=== PATIENT | female | born 1965 | race Caucasian/White ===

== ENCOUNTER 2020-06-16 09:30 | Outpatient (CLI) | payer OTHER, SELFPAY ==
--- NOTE | ~2020-06-16 | MM_ITS ---
EXAMINATION: MM screening [facility] [place] HISTORY: Screening mammogram TECHNIQUE: Craniocaudal and mediolateral oblique 3-D tomosynthesis images were obtained and synthetic 2-D images were generated. CAD analysis was submitted and interpreted. COMPARISON: 11/04/2014, 05/17/2011 bilateral digital screening mammogram examinations BREAST PARENCHYMAL COMPOSITION: There are scattered areas of fibroglandular density. FINDINGS: Stable mild fibroglandular asymmetry. There is no evidence of suspicious mass, calcificatio n, or architectural distortion to suggest malignancy in either breast. There has been no suspicious i nterval change. IMPRESSION: 1. No mammographic evidence of malignancy. 2. Recommend routine screening mammography in one year. BI-RADS Category 2: Benign finding(s). Reviewed, dictated and finalized at location A.
--- NOTE | ~2020-06-16 | DEXA_ITS ---
Bone Density Report Name: Christy Swanson Age: 54 Sex: Female Ethnicity: White Date of : 1965 Indication: postmenopausal; height loss; prior fracture; hysterectomy; Referring Provider: Casey, Michelle Study: Bone densitometry was performed. Exam Date: June 16, 2020 Accession number: [id number] Bone Density: Region BMD T-score Z-score Classification AP Spine (L1-L4) 0.988 -0.5 0.6 Normal Femoral Neck (Left) 0.729 -1.1 0.0 Osteopenia Total Hip (Left) 0.912 -0.2 0.5 Normal Total Hip Bilateral Avg 0.896 -0.4 0.4 Normal Femoral Neck (Right) 0.692 -1.4 -0.3 Osteopenia Total Hip (Right) 0.878 -0.5 0.2 Normal World Health Organization criteria for BMD impression classify patients as: Normal (T-score at or above -1.0), Osteopenia (T-score between -1.0 and -2.5), or Osteoporosis (T-score at or below -2.5). 10-year Fracture Risk(1): Major Osteoporotic Fracture 11% Hip Fracture 0.8% Reported Risk Factors: [place] (), Neck BMD=0.692, BMI=38.3, previous fracture (1) FRAX(R) Version 3.08. Fracture probability calculated for an untreated patient. Fracture probability may be lower if the patient has received treatment. Previous Exams: Region Exam Age BMD T-score BMD Change BMD Change Date g/cm2 vs Baseline vs Previous AP Spine(L1-L4) 06/16/2020 54 0.988 -0.5 -0.015(-1.5%) -0.015(-1.5%) 11/04/2014 48 1.003 -0.4 Total Hip(Left) 06/16/2020 54 0.912 -0.2 0.040(4.5%)* 0.040(4.5%)* 11/04/2014 48 0.872 -0.6 Total Hip(Right) 06/16/2020 54 0.878 -0.5 0.050(6.0%)* 0.050(6.0%)* 11/04/2014 48 0.828 -0.9 *Denotes significance at 95% confidence level, LSC for AP Spine = 0.022 g/cm2, LSC for Total Hip = 0.027 g/cm2 Clinical Information Provided by Patient: Has had a low trauma fracture Has used the following medications: Vitamin D Has the following medical conditions: Hysterectomy Patient maximum height was 66 Menopause Age: 35 No regular weight bearing exercise Drinks caffeinated beverages Onset of menses at age 12 Number of children 1 Impression: The patient has low bone mass, based on the Right Femoral Neck T-score. The patient has an estimated ten-year risk of hip fracture of 0.8% and an estimated ten-year risk of major fracture of 11%, based on the WHO FRAX algorithm. The patient has risk factors, including: previous fracture. No significant bone loss was observed. Discussion: BONE DENSITY IS LOW
== END 2020-06-16 09:31 | disposition home or self-care (01) ==
PROVIDERS: Visit Provider Nurse Practitioner
DX: Z12.31 Encounter for screening mammogram for malignant neoplasm of breast (principal); Z78.0 Asymptomatic menopausal state; M85.852 Other specified disorders of bone density and structure, left thigh; M85.851 Other specified disorders of bone density and structure, right thigh
CPT/HCPCS: 77063; 77067; 77080

== ENCOUNTER 2021-01-24 16:14 | Emergency (ER) | payer OTHER, SELFPAY ==
--- NOTE | ~2021-01-24 | XR_ITS ---
XR foot RT min 3V 01/24/2021 16:28 Indication: Stubbed third and fourth toes of the right foot with pain Procedure: 4 views right foot Comparison: 01/24/2010 Findings: There are chronic changes at the fifth MTP joint with loose bodies. Mild osteoarthritis of the first MTP joint. Lisfranc joint intact. Normal mineralization. Small degenerative calcaneal enthe sophytes. There is a new sclerotic lesion of the talus. There are adjacent loose bodies. No acute fra cture or traumatic malalignment. Impression: 1: No acute fracture. 2: New sclerotic lesion of the talus. Correlate for history of malignancy. Metastatic disease cannot be excluded. Reviewed, dictated and finalized at location A. R ASSEMBLER Impression: 1: No acute fracture. 2: New sclerotic lesion of the talus. Correlate for history of malignancy. [place] static disease cannot be excluded.
[2021-01-24 16:21] VITALS: BP 138/76; PULSE 66; RESP 16; TEMP 36.6; O2SAT 100
--- NOTE | 2021-01-24 16:29 | ED.LOWEXIN ---
HPI - Extremity Injury (Lower) General Chief Complaint: Extremity Injury, Lower Stated Complaint: INJURED TOES Time Seen by Provider: 01/24/21 16:32 Source: patient and RN notes reviewed Mode of arrival: ambulatory Limitations: no limitations History of Present Illness HPI Narrative: 55-year-old female presents concern for pain to digits 3 and 4 of her right foot, with bruising. Reports 3 days ago she stubbed her toe on a suitcase. She denies any intervention for her pain. She denies any other symptoms, any dorsal foot pain, ankle pain. MD complaint: foot injury Related Data Home Medications Medication Instructions Recorded Confirmed fluoxetine 10 mg capsule 10 mg PO DAILY 03/23/20 omeprazole 10 mg capsule,delayed 10 mg PO DAILY 03/23/20 release alprazolam 01/24/21 buspirone mg 01/24/21 meloxicam 01/24/21 omeprazole 01/24/21 Allergies Allergy/AdvReac Type Severity Reaction Status Date / Time cortisone Allergy Mild unknown Verified 03/23/20 11:21 Review of Systems Review of Systems: Narrative: CONSTITUTIONAL: Denies malaise, chills, sweats, or fever. CARDIOVASCULAR: Denies chest pain, palpitations, or edema. RESPIRATORY: Denies cough or dyspnea. SKIN: Denies open skin MUSCULOSKELETAL: Reports pain, bruising and digits 3 and 4 of the right foot NEUROLOGIC: Denies numbness, weakness All systems reviewed & are unremarkable except as noted in HPI and below PMFSH Past Medical History Medical History (Updated 01/24/21 @ 16:53 by Shantelle Ward NP) Bilateral knee pain Fall Surgical History Surgical History (Updated 03/23/20 @ 15:35 by DOUGLAS Zimmerman) Total knee replacement status Social History Social History Smoking status: Never smoker Alcohol intake: current Comments At time of signature, agree with nursing past medical, surgical, social and family history. There is no relevant family history pertinent to the presenting complaint Exam Narrative: Exam Narrative: GENERAL: Well-appearing, well-nourished, and in no acute distress. HEAD: Normocephalic, atraumatic. EYES: PERRLA, conjunctivae clear NECK: Supple. CHEST: Speaks in full sentences. No respiratory distress. HEART: Regular rate and rhythm. Normal and equal peripheral pulses. EXTREMITIES: Digits 3 and 4 of the right foot have normal strength and sensation, normal range of motion. No edema, mild ecchymosis. 5/5 strength with digit flexion and extension. Normal sensation with sensitivity to light touch and pain. No point tenderness. No open wounds, no skin tenting, no devitalized tissue or atrophy, no trophic changes, no obvious deformity, alignment normal, nearby joints and structures intact. Distal pulses palpable and equal bilaterally, skin warm, dry, pink. Capillary refill less than 3 seconds. No dorsal foot tenderness SKIN: Warm, dry, no rash. NEURO: Alert and oriented x3. PSYCH: Normal mood and affect Course Course Emergency Course: Discussed incidental x-ray findings with patient, discussed need for follow-up with orthopedics or primary care doctor. Patient reports she has an appointment with Dr. Hawk later this week, she also declined with her primary. Patient denies any current or past history of cancer Patient is aware of diagnosis, understands and agrees to treatment plan. Anticipatory guidance given. Patient agrees to follow-up as directed and is aware of reasons to seek care at the emergency department. Portions of this record may have been created with voice recognition software Vital Signs Vital signs: Vital Signs Temperature 97.8 F 01/24/21 16:21 Pulse Rate 66 01/24/21 16:21 Respiratory Rate 16 01/24/21 16:21 Blood Pressure 138/76 01/24/21 16:21 Pulse Oximetry 100 01/24/21 16:21 Temperature 97.8 F 01/24/21 16:21 Pulse Rate 66 01/24/21 16:21 Respiratory Rate 16 01/24/21 16:21 Blood Pressure 138/76 01/24/21 16:21 Pul
== END 2021-01-24 17:00 | disposition home or self-care (01) ==
PROVIDERS: Emergency Provider Nurse Practitioner
DX: S99.921A Unspecified injury of right foot, initial encounter (principal); W22.8XXA Striking against or struck by other objects, initial encounter; M89.9 Disorder of bone, unspecified; Z96.659 Presence of unspecified artificial knee joint
CPT/HCPCS: 73630; 99213; G0463

== ENCOUNTER 2021-03-20 00:37 | Emergency (ER) | payer OTHER, SELFPAY ==
[2021-03-20] VITALS (7 sets, daily range): BP systolic 96–150; BP diastolic 72–99; PULSE 62–72; RESP 15–18; O2SAT 98–100
--- NOTE | ~2021-03-20 | CT_ITS ---
EXAMINATION: CT abdomen pelvis w con INDICATION: Lower abdominal pain TECHNIQUE: Computed tomographic images of the abdomen and pelvis were obtained after the administrati on of 100 cc of Omnipaque 350 intravenous contrast. The dose-length product (DLP) was 1498.26 mGy-cm. Automated exposure control and iterative reconstruction technique were employed. COMPARISON: 01/04/2019 FINDINGS: The lung bases are clear. The heart size is normal. There is a small sliding hiatal hernia. The gallbladder is surgically absent. Punctate calcifications in an otherwise normal spleen likely r epresent healed granulomatous disease. The liver, pancreas, and adrenal glands are normal. The kidney s are unremarkable. No pathologically enlarged abdominal or pelvic lymph nodes are identified. A circ umaortic left renal vein is noted. No pathologically enlarged abdominal or pelvic lymph nodes are neyda ntified. There is wall thickening involving several loops of small bowel in the left pelvis. A small amount of fluid is present in the associated small bowel mesentery. There is no free intraperitoneal gas or evidence of bowel obstruction. Surgical changes are noted in the rectum and and a distal small bowel loop. There is moderate lumbar spondylosis. There is a fat-containing umbilical hernia. Also s een is a midline epigastric hernia containing fat. IMPRESSION: 1. Wall thickening involving nondilated small bowel in the left lower quadrant, likely enteritis. Reviewed, dictated and finalized at location A.
[2021-03-20 02:05] LABS: Basophils Percent Auto 0.4 % (0.2-1.2); Eosinophils Absolute Auto 0.1 K/mm3 (0-0.3); Eosinophils Percent Auto 0.9 % (0-4.4); Hemoglobin 14.2 g/dL (12.0-15.0); Immature Granulocyte Absolute 0.01 K/mm3 (0.00-0.031); Immature Granulocyte Percent A 0.1 % (0-0.5); Lymphocytes Absolute Auto 1.22 K/mm3 (0.9-3.2); Lymphocytes Percent Auto 17.5 % (18.3-44.2); Mean Corpuscular HGB Conc 32.3 g/dl (32-36); Mean Corpuscular Hemoglobin 29.6 pg (26-34); Mean Corpuscular Volume 91.7 fl (80-100); Monocytes Absolute Auto 0.3 K/mm3 (0.1-0.6); Monocytes Percent Auto 4.7 % (2.6-8.5); Neutrophils Absolute Auto 5.3 K/mm3 (1.3-6.7); Neutrophils Percent Auto 76.4 % (45.5-73.1); Platelet Count Result 216 k/mm3 (150-375)
[2021-03-20] MEDS: SODIUM CHLORIDE 0.9% IV 1,000 ML 999 ML IV CONT (02:18)
[2021-03-20 02:45] LABS: Add Urine Microscopic? YES; Appearance Urine Cloudy (Clear); Bacteria Urine Trace /hpf; Bilirubin Urine Negative (Negative); Blood Urine Negative (Negative); Color Urine Yellow (Yellow); Glucose Urine UA Negative (Negative); Ketones Urine Negative (Negative); Leukocyte Esterase Ur Trace LEU/UL (Negative); Nitrate Urine Negative (Negative); Protein Urine Negative (Negative); RBC Urine 0-2 /hpf (0-2); Urobilinogen Urine Negative mg/dL (<2.0)
[2021-03-20 03:12] LABS: Estimated CRCL calculation 71 ml/min; Estimated Glomerular Filt Rate > 60
[2021-03-20 03:19] LABS: Alanine Aminotransferase 19 U/L (4-35); Albumin Level 3.9 g/dL (3.5-5.1); Alkaline Phosphatase 78 U/L (38-126); Anion Gap 2 mmol/L (8-16); Aspartate Amino Transferase 28 U/L (14-36); Bilirubin,Total 0.5 mg/dL (0.2-1.3); Blood Urea Nitrogen 16 mg/dL (7-17); Calcium 9.6 mg/dL (8.4-10.2); Carbon Dioxide 33 mmol/L (22-30); Chloride 106 mmol/L (98-107); Estimated CRCL calculation 79 ml/min; Estimated Glomerular Filt Rate > 60; Glucose 92 mg/dL (65-105); Lipase 87 U/L (23-300); Potassium 4.1 mmol/L (3.4-5.0); Sodium 141 mmol/L (137-145)
--- NOTE | 2021-03-20 03:29 | ED.ABDPAIN ---
HPI - Abdominal Pain General Chief Complaint: Abdominal Pain Stated Complaint: abd pain Time Seen by Provider: 03/20/21 01:31 Source: patient and RN notes reviewed Mode of arrival: ambulatory Limitations: no limitations History of Present Illness HPI narrative: Patient is 55 years old white female presented to the ED with sudden onset of mid abdominal pain, across the abdomen started 5 hours prior to arrival. Associated with nausea. Patient denies any fever, chills, vomiting, diarrhea, constipation, urinary symptoms, radiation of pain, chest pain or shortness of breath. History of cholecystectomy, hysterectomy, endometriosis and colon resection. Also history of diverticulitis. Patient does not smoke or drink or uses drugs. Patient drove herself to the emergency room Related Data Home Medications Medication Instructions Recorded Confirmed fluoxetine 10 mg capsule 10 mg PO DAILY 03/23/20 omeprazole 10 mg capsule,delayed 10 mg PO DAILY 03/23/20 release alprazolam 01/24/21 buspirone mg 01/24/21 meloxicam 01/24/21 omeprazole 01/24/21 Allergies Allergy/AdvReac Type Severity Reaction Status Date / Time cortisone Allergy Mild unknown Verified 03/23/20 11:21 Review of Systems Review of Systems: Narrative: CONSTITUTIONAL: Denies fever, chills, or sweats. EYES: Denies visual changes, redness, or discharge. ENT: Denies rhinorrhea, congestion, sore throat, or otalgia. CARDIOVASCULAR: Denies chest pain, palpitations, or edema. RESPIRATORY: Denies cough or dyspnea. GASTROINTESTINAL: Denies abdominal pain, nausea, vomiting, or diarrhea. GENITOURINARY: Denies dysuria or hematuria. SKIN: Denies rash or itching. MUSCULOSKELETAL: Denies back pain, joint pain, or myalgia. NEUROLOGIC: Denies headache, numbness, or weakness. PSYCHIATRIC: Denies anxiety or depression. PMFSH Past Medical History Medical History Bilateral knee pain Fall Surgical History Surgical History Total knee replacement status Social History Social History Smoking status: Never smoker Alcohol intake: current Exam Narrative: Exam Narrative: General appearance: Well-developed, well-nourished Skin: Normal color Head: Normocephalic, nontraumatic Eyes: Clear conjunctiva ENT: Oropharynx normal, ears normal, nose normal Neck: Supple, nontender Chest and respiratory: Airway patent, no respiratory distress, no accessory muscle use Heart: Regular rate/rhythm Abdomen: Soft, mild diffuse tenderness right lower quadrant and epigastric area, no organomegaly, quiet bowel sounds Vascular: Normal peripheral pulses, normal capillary refill. Musculoskeletal: Normal range of motion, nontender back Neurologic: Alert and oriented ?3, AGILITY INSTRUCTOR is normal as tested, no gross motor deficit Course Vital Signs Vital signs: Vital Signs Pulse Rate 71 03/20/21 00:38 Respiratory Rate 16 03/20/21 00:38 Blood Pressure 150/82 H 03/20/21 00:38 Pulse Oximetry 99 03/20/21 00:38 Pulse Rate 62 03/20/21 05:05 Respiratory Rate 16 03/20/21 05:05 Blood Pressure 142/90 H 03/20/21 05:05 Pulse Oximetry 98 03/20/21 05:05 MDM - Abdominal Pain MDM Narrative Medical decision making narrative: My differential diagnosis as below. Labs, CT abdomen pelvis with IV contrast, UA, IV fluid, IV Dilaudid and Zofran ordered. Further plan to follow Differential Diagnosis Differential diagnosis: Likely abdominal pain, acute appendicitis, constipation, diverticulitis, endometriosis and pancreatitis Lab Data Result diagrams:
[2021-03-20] MEDS: HYDROmorphone HCL INJ (*CRX) 1 MG/ML SYR 0.5 MG IV PUSH (03:39)
[2021-03-20] MEDS: ONDANSETRON INJ 4 MG/2 ML VIAL IV PUSH (03:39)
== END 2021-03-20 05:32 | disposition home or self-care (01) ==
PROVIDERS: Emergency Provider Emergency Medicine; PCP Physician Assistant
DX: N13.30 Unspecified hydronephrosis (principal); K52.9 Noninfective gastroenteritis and colitis, unspecified
CPT/HCPCS: 36415; 74177; 80053; 81001; 83690; 85025; 96361; 96374; 96375; 99284; J1170; J2405; J7030; Q9967

== ENCOUNTER 2021-12-24 14:00 | Emergency (ER) | payer OTHER, SELFPAY ==
[2021-12-24 14:05] VITALS: BP 137/90; PULSE 76; RESP 16; TEMP 36.8; O2SAT 99
--- NOTE | 2021-12-24 14:13 | ED.URI ---
HPI - URI/Sore Throat General Chief Complaint: Upper Respiratory Infection Stated Complaint: Cough Time Seen by Provider: 12/24/21 14:08 Source: patient and RN notes reviewed History of Present Illness HPI Narrative: Patient is a 56-year-old female who presents the urgent care with complaints of cough, shortness of breath and fatigue. Patient states that it started last Friday with a sore throat and she has been taking Tylenol and cough medicine for her symptoms. Patient states that she has had some loose stools throughout the last 5 days. States that she took a rapid at home COVID test which was negative after only having 24 hours of symptoms. Patient denies of any recent fever, nausea, vomiting, chest pain. Denies of any known exposures to COVID. Patient has had the COVID vaccine. No other complaints. No acute distress noted. Patient aware of the plan of care. Some parts of this dictation were generated by voice recognition software and may contain typographical and/or grammatical inaccuracies. Related Data Home Medications Medication Instructions Recorded Confirmed fluoxetine 10 mg capsule 10 mg PO DAILY 03/23/20 omeprazole 10 mg capsule,delayed 10 mg PO DAILY 03/23/20 release alprazolam 01/24/21 buspirone mg 01/24/21 meloxicam 01/24/21 omeprazole 01/24/21 Allergies Allergy/AdvReac Type Severity Reaction Status Date / Time cortisone Allergy Mild unknown Verified 12/24/21 14:03 Review of Systems Review of Systems: CONSTITUTIONAL: Denies fever, chills, or sweats. Reports of fatigue EYES: Denies visual changes, redness, or discharge. ENT: Reports of intermittent sore throat, congestion, rhinorrhea CARDIOVASCULAR: Denies chest pain, palpitations, or edema. RESPIRATORY: Reports of cough with dyspnea GASTROINTESTINAL: Denies abdominal pain, nausea, vomiting, or diarrhea. GENITOURINARY: Denies dysuria or hematuria. SKIN: Denies rash or itching. MUSCULOSKELETAL: Denies back pain, joint pain, or myalgia. NEUROLOGIC: Denies headache, numbness, or weakness. All other systems reviewed are negative, except as documented in HPI. [facility] Past Medical History Medical History Bilateral knee pain Fall Surgical History Surgical History Total knee replacement status Social History Social History Smoking status: Never smoker Alcohol intake: current Comments At the time of my signature, I reviewed and agree with the nursing past medical, surgical, social, and family history. There is no relevant family history pertinent to the patient complaint. Exam Narrative: GENERAL: This is a well-nourished, well-developed patient, in no apparent distress. HEAD: normocephalic, atraumatic. EYES: PERRL. Sclera clear/white. Vision is grossly intact. EARS: External ears normal, auditory canals clear and without drainage, TMs normal without perforation. Hearing grossly intact. NOSE: External nose normal with no obvious nasal discharge, nares without redness, yellow rhinorrhea. THROAT: Mucous membranes moist, posterior pharynx clear. Moderate postnasal drainage NECK: Neck supple CARDIOVASCULAR: Regular rate and rhythm without murmurs, gallops, or rubs. RESPIRATORY: Clear to auscultation. Breath sounds equal bilaterally. No wheezes, rales, or rhonchi. SKIN: warm, intact with no suspicious lesions or rash, good texture and turgor. NEURO: awake, alert, and oriented to person, place and time. There were no obvious focal neurologic abnormalities. EXTREMITIES: No clubbing, cyanosis, or edema. Course Course Level of Care: Express Care Visit Vital Signs Vital signs: Vital Signs Temperature 98.3 F 12/24/21 14:05 Pulse Rate 76 12/24/21 14:05 Respiratory Rate 16 12/24/21 14:05 Blood Pressure 137/90 12/24/21 14:05 Pulse Oximetry 99 12/24/21 14:05 Temper
== END 2021-12-24 14:24 | disposition home or self-care (01) ==
PROVIDERS: Emergency Provider Nurse Practitioner Family; PCP Physician Assistant
DX: J06.9 Acute upper respiratory infection, unspecified (principal); Z20.822 Contact with and (suspected) exposure to COVID-19; Z96.659 Presence of unspecified artificial knee joint
CPT/HCPCS: 87426; 99213; C9803; G0463

== ENCOUNTER 2023-03-24 00:04 | Day surgery (SDC) | payer OTHER, SELFPAY ==
[2023-03-14 10:47] VITALS: BMI 39.5
--- NOTE | 2023-03-14 10:52 | PC.NURSE ---
Report to the Outpatient Waiting Room, entrance under the green pavilion located off [facility], at time 1030 on date 03/24/23. Planned Procedure Time: 1230. Time changes happen often and if your time is changed the preop area will call you the afternoon before. - You and your visitor will be asked to self-screen and do not enter if you have any COVID symptoms. - A mask is optional within the hospital at this time. Patients may have clear liquids (water, carbonated beverages, clear teas, apple juice) until 3 hours prior to surgery with a maximum of 20 ounces. - No food from midnight until time of surgery Take the following medications with a SIP of water the morning of surgery: ALPRAZOLAM IF NEEDED, PROZAC DO NOT STOP ANY OF YOUR OTHER PRESCRIPTION MEDICATIONS PRIOR TO SURGERY EXCEPT THE FOLLOWING Medications to discontinue per physician: VITAMINS/SUPPLEMENTS Date to take last dose: 03/20/23 Please no make-up, nail croatian, hairspray, perfume, deodorant, or body powder the day of surgery. No jewelry (including any body piercings) or valuables the day of surgery, leave them at home. Please take a shower or bath the night before, or the morning of, surgery with an antibacterial soap. Wear comfortable, loose fitting clothing. - Jewelry must be removed prior to entering the operating room. Rings and piercings that are not removed may be cut off. - The hospital will not accept responsibility for valuables. - Please leave all valuables, including medications, at home the day of surgery. If you are going home after surgery, a licensed concrete pile driver operator must drive you home. - NO public transportation without another adult if you receive anesthesia. - We recommend that an adult stay with you for 24 hours following discharge. - We also recommend that you do not drive, make important decision, drink alcoholic beverages, or take any drugs that were not prescribed by your health care provider for at least 24 hours after your discharge time. Follow any additional instructions given to you from your surgeon. If you or anyone in your household have experienced Covid symptoms in the past week, please notify your surgeon or the nurse liaison at the phone number below for possible testing. Telephone instructions given to PT - JUDY ADAMS and asked if any additional questions and then verbalized understanding. Patient advised to call surgeon office or pre surgery nurse liaison [phone] if any additional questions.
--- NOTE | 2023-03-22 16:42 | PM.IMHP ---
H&P: HPI History of Present Illness Date/Time: 03/22/23 16:42 Chief Complaint: stress incontinence Narrative: 57-year-old with mixed incontinence. Desires treatment for stress incontinence Review of Systems Review of Systems: All systems reviewed & are unremarkable except as noted in HPI and below PMFSH Past Medical History Medical History Bilateral knee pain Fall Surgical History Surgical History Total knee replacement status Social History Social History Smoking status: Never smoker Alcohol intake: never Substance use: never Substance use type: does not use Living arrangements: with family Spiritual care concerns: No Meds Home Medications and Allergies Home Medications Medication Instructions Recorded Confirmed Type fluoxetine 10 mg capsule (Prozac) 10 mg PO DAILY 03/23/20 03/14/23 History alprazolam 1 mg tablet 1 mg PO PRN PRN Anxiety 01/24/21 03/14/23 History meloxicam 15 mg tablet 15 mg PO PRN PRN Pain, Moderate 01/24/21 03/14/23 History omeprazole 40 mg capsule,delayed 40 mg PO DAILY 01/24/21 03/14/23 History release albuterol sulfate 90 mcg/actuation 2 puff inhalation QID PRN 12/24/21 03/14/23 Rx aerosol inhaler shortness of breath or wheezing #8 grams tizanidine 2 mg tablet 2 mg PO HS 12/24/21 03/14/23 History cholecalciferol (vitamin D3) 125 125 mcg PO DAILY 03/14/23 03/14/23 History mcg (5,000 unit) tablet (Vitamin D3) montelukast 10 mg tablet 10 mg PO HS 03/14/23 03/14/23 History (Singulair) vitamin B complex (Complex B-100 1 tablet PO DAILY 03/14/23 03/14/23 History tablet,extended release) Allergies Allergy/AdvReac Type Severity Reaction Status Date / Time cortisone Allergy Mild Redness of Verified 03/14/23 10:44 Skin Exam Narrative: urethra ability documented Assessment and Plan Assessment and plan (1) MALIA (stress urinary incontinence, female): Code(s): N39.3 - Stress incontinence (female) (male) Status: Acute Assessment and Plan: urethral sling. Understands risks of bleeding, infection, damage to surrounding organs, damage to the urinary tract, mesh extrusion, mesh exposure, obstructive voiding requiring secondary procedure. Also understands it will not help overactive bladder symptoms
--- NOTE | 2023-03-24 07:16 | WPDHPUPDATE1 ---
History and Physical Update Update Date/Time: 03/24/23 07:16 History and Physical has been reviewed, including an updated exam of the patient. There are NO changes in the patient's condition. Risks, benefits, and alternatives have been discussed and questions answered. Patient agrees to proceed with procedure.
[2023-03-24 11:00] VITALS: BP 145/78; PULSE 78; RESP 16; TEMP 36.7; O2SAT 100
[2023-03-24] MEDS: LACTATED RINGERS 1,000 ML 30 ML IV CONT (11:00)
--- NOTE | 2023-03-24 11:15 | P.PNAN_ITS ---
Anes - Initial Pre Proc Eval Procedure: Operation Date: 03/24/23 12:30 Proposed Procedures p Urethral Sling - Eros Stanley MD Date/Time: 03/24/23 11:15 Surgeon: Eros Stanley MD Pre Op Diagnosis: stress incontinence Patient Data Age: 57 Gender: F Height: 1.68 m Weight: 111.15 kg Allergies Allergy/AdvReac Type Severity Reaction Status Date / Time cortisone Allergy Mild Redness of Verified 03/14/23 10:44 Skin Home Medications Medication Instructions Recorded Confirmed Type fluoxetine 10 mg capsule (Prozac) 10 mg PO DAILY 03/23/20 03/14/23 History alprazolam 1 mg tablet 1 mg PO PRN PRN Anxiety 01/24/21 03/14/23 History meloxicam 15 mg tablet 15 mg PO PRN PRN Pain, Moderate 01/24/21 03/14/23 History omeprazole 40 mg capsule,delayed 40 mg PO DAILY 01/24/21 03/14/23 History release albuterol sulfate 90 mcg/actuation 2 puff inhalation QID PRN 12/24/21 03/14/23 Rx aerosol inhaler shortness of breath or wheezing #8 grams tizanidine 2 mg tablet 2 mg PO HS 12/24/21 03/14/23 History cholecalciferol (vitamin D3) 125 125 mcg PO DAILY 03/14/23 03/14/23 History mcg (5,000 unit) tablet (Vitamin D3) montelukast 10 mg tablet 10 mg PO HS 03/14/23 03/14/23 History (Singulair) vitamin B complex (Complex B-100 1 tablet PO DAILY 03/14/23 03/14/23 History tablet,extended release) Patient hx anesthesia problems: none Family hx anesthesia problems: none Results Review: All pre-operative results and documents have been reviewed as part of the pre- operative evaluation. [facility] Past Medical History Medical History Bilateral knee pain Fall Surgical History Surgical History Total knee replacement status Social History Social History Smoking status: Never smoker Alcohol intake: never Substance use: never Substance use type: does not use Living arrangements: with family Spiritual care concerns: No Anes - Eval Final PreProcedure Day of Procedure 03/24/23 11:15 Patient weight: morbidly obese Heart: regular rate and rhythm Lungs: clear to auscultation Airway: Mallampati scale class II Neurological: alert and oriented Last oral intake: >/= 8 hours ASA classification: III Emergent: no Anesthetic plan: proceed Anesthesia type and monitoring: general GIVS and standard monitoring Results Review: All pre-operative results and documents have been reviewed as part of the pre- operative evaluation. Informed Consent: The patient's anesthetic plan and its attendant risks and benefits were discussed with the patient/family/POA. Questions were solicited and answers provided to the satisfaction of the patient/family/POA.
[2023-03-24] MEDS: ceFAZolin 2 GM/D5W 50 ML 2 GM/50 ML BAG IVPB (11:38)
[2023-03-24] MEDS: BUPIVACAINE/EPINEPHRINE 0.25% 10 ML VIAL INFILTRATE (12:02)
[2023-03-24 12:13] VITALS: BP 104/67; BP 119/62; PULSE 58; PULSE 62; RESP 14; O2SAT 100
--- NOTE | 2023-03-24 12:21 | P.OP_ITS ---
Procedure Note - Detailed Date of Procedure 03/24/23 Pre-op Diagnosis stress incontinence Post-op Diagnosis Same Procedure Performed mid urethral sling cystoscopy Surgeon Eros Stanley MD Anesthesia MAC and Local Indications This is a female with confirm stress urinary incontinence. She desires surgical correction. She understands the risks of bleeding, infection, injury to the urinary tract, vaginal mesh extrusion, urinary tract mesh erosion, obstructive voiding requiring a secondary procedure, hip and leg pain, dyspareunia, inability to improve overactive bladder symptoms. She agrees to proceed. Description of Procedure She was correctly identified. Informed consent obtained. She was brought the operating room. She was given appropriate anesthesia. She was given appropriate perioperative antibiotics. A time-out performed. I marked out the site of the inner thigh incisions. I anesthetized the skin and made those incisions. I anesthetized the anterior vaginal wall over the mid urethra. I made a 1 cm incision. I dissected out laterally taking great care not to injure the refilled vaginal wall. I passed the helical trocars. First on the left. Then on the right. I did this from the thigh incision towards the vaginal incis ion. The sling was connected to the trocars and brought out through the thigh incision. I tensioned the sling appropriately. I cut and the plastic sheaths. I then closed the incision with 2 0 Vicryl. On cystoscopy there is no tumors or surgical artifact. There was no surgical artifact in the urethra. I cut the excess sling material. Close incisions with glue. She was awakened and transferred to the PACU in stable condition. Implants Urethral sling Estimated Blood Loss -10.0 Drains No Packing No Pathology None sent Complications No immediate complications Condition Stable Disposition PACU
[2023-03-24] MEDS: fentaNYL CITRATE INJ (*CRX) 100 MCG/2 ML VIAL 25 MCG IV PUSH ×2 (12:34→12:49)
[2023-03-24 12:43] VITALS: BP 132/72; PULSE 55; RESP 14; O2SAT 98
[2023-03-24] MEDS: oxyCODONE HCL (*CRX) 5 MG TAB IR PO (13:24)
[2023-03-24 13:36] VITALS: BP 104/67; PULSE 58; RESP 14
[2023-03-24 14:06] VITALS: BP 142/80; PULSE 55; RESP 14
[2023-03-24 14:36] VITALS: BP 129/76; PULSE 58; RESP 14
== END 2023-03-24 14:40 | disposition home or self-care (01) ==
PROVIDERS: PCP Physician Assistant; Visit Provider Urology
PROC: (CPT 57288; principal; 2023-03-24 12:30)
DX: N39.3 Stress incontinence (female) (male) (principal); Z79.51 Long term (current) use of inhaled steroids; E66.01 Morbid (severe) obesity due to excess calories; Z68.38 Body mass index [BMI] 38.0-38.9, adult
CPT/HCPCS: 57288; A9270; C1771; J0690; J1170; J2250; J2704; J3010; J7030; J7120

== ENCOUNTER 2023-06-23 18:50 | Emergency (ER) | payer OTHER, SELFPAY ==
--- NOTE | ~2023-06-23 | XR_ITS ---
EXAM: XR foot RT 2V DATE: 06/23/2023 20:16 HISTORY: calcaneal pain, swelling w/o injury . COMPARISON: 01/24/2021. FINDINGS: Normal mineralization. No fracture or dislocation. No lytic or blastic lesion. Moderate de generative change at the first MTP joint, fifth MTP joint, and multiple midfoot joints. Achilles and plantar enthesopathy. Calcific densities project over the anterior ankle may represent calcific tendi nitis versus loose joint bodies or both. No erosion or periosteal change. Soft tissues within normal limits. IMPRESSION: No acute osseous finding in the right foot. Reviewed, dictated and finalized at location K.
--- NOTE | ~2023-06-23 | US_ITS ---
EXAMINATION: US venous doppler LE RT DATE: 06/23/2023 20:54 INDICATION: Right lower limb pain and swelling and redness. TECHNIQUE: Grayscale images without and with compression and Doppler images of the right lower extrem ity veins were obtained. COMPARISON: None FINDINGS: The right common femoral vein, profunda (deep) femoral vein, femoral vein, popliteal vein, peroneal v ein, posterior tibial veins, gastrocnemius vein, and greater saphenous vein are patent. Pitting edema in the right lower limb. IMPRESSION: Patent right lower extremity veins. No evidence of deep venous thrombosis. Reviewed, dictated and finalized at location K.
[2023-06-23 18:51] VITALS: BP 153/80; PULSE 74; RESP 20; TEMP 36.6; O2SAT 100
[2023-06-23 19:48] VITALS: BP 143/72; PULSE 63; RESP 15; O2SAT 98
--- NOTE | 2023-06-23 20:45 | ED.GENADULT ---
[facility] - General Adult General Chief complaint: Extremity Problem,Nontraumatic Stated complaint: right foot pain Time Seen by Provider: 06/23/23 19:45 Source: patient Mode of arrival: ambulatory Limitations: no limitations History of Present Illness HPI narrative: This is a 57-year-old female who presents to the ED with chief complaint of right heel pain and swelling for the past 2 days. Denies any injury. Reports that she is on her feet for around 8 hours a day for work. She states that standing up and walking makes the pain worse. Denies any specific alleviating factors. Denies blood clot history. Denies any hormonal medication use. Related Data Home Medications Medication Instructions Recorded Confirmed fluoxetine 10 mg capsule (Prozac) 10 mg PO DAILY 03/23/20 03/24/23 alprazolam 1 mg tablet 1 mg PO PRN PRN Anxiety 01/24/21 03/24/23 meloxicam 15 mg tablet 15 mg PO PRN PRN Pain, Moderate 01/24/21 03/24/23 omeprazole 40 mg capsule,delayed 40 mg PO DAILY 01/24/21 03/24/23 release tizanidine 2 mg tablet 2 mg PO HS 12/24/21 03/24/23 cholecalciferol (vitamin D3) 125 125 mcg PO DAILY 03/14/23 03/24/23 mcg (5,000 unit) tablet (Vitamin D3) montelukast 10 mg tablet 10 mg PO HS 03/14/23 03/24/23 (Singulair) vitamin B complex (Complex B-100 1 tablet PO DAILY 03/14/23 03/24/23 tablet,extended release) Allergies Allergy/AdvReac Type Severity Reaction Status Date / Time cortisone Allergy Mild Redness of Verified 03/24/23 11:23 Skin Review of Systems Review of Systems: All systems as dictated in [facility] Past Medical History Medical History Bilateral knee pain Fall Surgical History Surgical History Total knee replacement status Social History Social History Smoking status: Never smoker Alcohol intake: never Substance use: never Substance use type: does not use Living arrangements: with family Spiritual care concerns: No Exam Narrative: GENERAL: Well-appearing, well-nourished, and in no acute distress. HEAD: Normocephalic, atraumatic. EYES: PERRLA and EOMI. ENT: Nares clear, no rhinorrhea or epistaxis. Mucous membranes moist. Oropharynx without tonsillar hypertrophy exudate or other lesions. NECK: Supple. No adenopathy or masses. CHEST: No respiratory distress. Clear to auscultation. No wheezes rales or rhonchi HEART: Regular rate and rhythm. No murmur heard. Normal peripheral pulses. ABDOMEN: Soft, nontender, nondistended, normal active bowel sounds. MSK: RLE: No calf tenderness. Mild swelling in the lower calf. Mild swelling at the calcaneal posterior ankle. Mild tenderness at this site as well. No bruising. No deformity. No edema. Ambulatory. LLE: Benign. SKIN: Warm, dry, no rash. NEURO: Alert and oriented x3. No focal deficits. PSYCH: Normal mood and affect. Course Vital Signs Vital signs: Vital Signs Temperature 97.9 F 06/23/23 18:51 Pulse Rate 74 06/23/23 18:51 Respiratory Rate 20 06/23/23 18:51 Blood Pressure 153/80 H 06/23/23 18:51 Pulse Oximetry 100 06/23/23 18:51 Oxygen Delivery Room Air 06/23/23 18:51 Temperature 97.9 F 06/23/23 18:51 Pulse Rate 72 06/23/23 20:57 Respiratory Rate 17 06/23/23 20:57 Blood Pressure 143/70 H 06/23/23 20:57 Pulse Oximetry 99 06/23/23 20:57 Oxygen Delivery Room Air 06/23/23 19:48 Medical Decision Making [facility] Narrative Medical decision making narrative: This is a 57-year-old female who presents to the ED with chief complaint of right posterior foot pain ongoing for the past several days. Vitals are normal. Exam reveals slight area of tenderness and swelling to the right calcaneal area. She did have some radiating pain up into the calf. Her Wells score is 0. Her ultrasound shows no evidence o
[2023-06-23 20:57] VITALS: BP 143/70; PULSE 72; RESP 17; O2SAT 99
== END 2023-06-23 21:21 | disposition home or self-care (01) ==
PROVIDERS: Emergency Provider Physician Assistant; PCP Physician Assistant
DX: M25.571 Pain in right ankle and joints of right foot (principal)
CPT/HCPCS: 73620; 93971; 99284

== ENCOUNTER 2024-09-15 15:06 | Emergency (ER) | payer OTHER, SELFPAY ==
--- NOTE | ~2024-09-15 | CT_ITS ---
EXAMINATION: CT brain wo con DATE: 09/15/2024 17:12 INDICATION: + LOC associated with fall . TECHNIQUE: Computed tomography (CT) of the head was performed without intravenous contrast. The mA wa s adjusted according to patient size. Iterative reconstruction technique was employed. The dose-lengt h product was 605.33 mGy-cm. COMPARISON: None. FINDINGS: No acute intracranial hemorrhage or extra-axial fluid collection. No hydrocephalus, mass, or herniation. No acute ischemic infarct. Unremarkable dural venous sinus attenuation. No acute osseous abnormality. The aerated spaces are clear. IMPRESSION: No acute intracranial process. Reviewed, dictated and finalized at location K.
--- NOTE | ~2024-09-15 | XR_ITS ---
XR knee RT min 4V Ordering provider: Blanca Harding APRN History: . fall, unable to move R knee . Comparison: March 23, 2024 FINDINGS: BONES: No acute fracture or dislocation. JOINT SPACES: Total knee arthroplasty. SOFT TISSUES: Normal. IMPRESSION: No acute osseous abnormality right knee. Total knee arthroplasty. Reviewed, dictated and finalized at location A.
[2024-09-15 15:09] VITALS: BP 147/74; PULSE 76; RESP 18; TEMP 36.5; O2SAT 100
--- NOTE | 2024-09-15 16:43 | ECG_ITS ---
Test Date: 2024-09-15 17:03:06 Measurements Intervals [place] Rate: 75 P: -3 [place]: 128 QRS: -7 QRSD: 90 T: 15 QT: 369 QTc: 412 Interpretive Statements SINUS RHYTHM VOLTAGE CRITERIA FOR LVH [MEETS CRITERIA IN ONE OF: R(aVL), S(V1), R(V5), R(V5/V6)+S(V1)] No previous ECG available for comparison Electronically Signed On 09-16-2024 11:39:06 CDT by Jatinder White M.D.
--- NOTE | 2024-09-15 16:47 | ED.FALL ---
HPI - Fall General Chief Complaint: Fall <Blanca Harding APRN - Last Filed: 09/15/24 20:20> Stated Complaint: fall <Blancachi Harding APRN - Last Filed: 09/15/24 20:20> Time Seen by Provider: 09/15/24 16:40 <Blanca Harding APRN - Last Filed: 09/15/24 20:20> Focused HPI: Patient is a 58-year-old female who presents to the ER after a fall at work this morning. She reports she was helping to unload a truck, it was warm, and she reports she was sweating. Patient reports everything she remembers from that point on is in slow motion. She endorses positive loss of consciousness and is unsure if she hit her head. Patient endorses right elbow and right knee pain. She is unsure why she lost consciousness and reports this has never happened to her before. GENERAL: Well-appearing, well-nourished, and in no acute distress. HEAD: Normocephalic, atraumatic. CHEST: Clear to auscultation. ?No respiratory distress. HEART: Regular rate and rhythm.? NEURO: ?Alert and oriented x3. Inability to tolerate manipulation of R knee. MUSCULOSKELETAL: Swollen R knee with mild ecchymosis. R shoulder and elbow tolerates manipulation. Patient screened in triage and initial orders placed.? ?Additional care and disposition to be based upon?diagnostic testing and treatment. <Blanca Harding APRN - Last Filed: 09/15/24 20:20> History of Present Illness HPI Narrative: Patient is a 58-year-old female who presents emergency department with chief complaint of right hip pain. Patient reports that she had a brief syncopal episode after she was unloading a truck at work got hot and then briefly passed out patient states that she feels fine from the syncope is had no further episodes of syncope the patient denies chest pain denies shortness of breath denies any other injury that her right knee. <Severino Garrett MD - Last Filed: 09/15/24 20:56> Related Data Home Medications: Home Medications Medication Instructions Recorded Confirmed fluoxetine 10 mg capsule (Prozac) 10 mg PO DAILY 03/23/20 03/24/23 alprazolam 1 mg tablet 1 mg PO PRN PRN Anxiety 01/24/21 03/24/23 meloxicam 15 mg tablet 15 mg PO PRN PRN Pain, Moderate 01/24/21 03/24/23 omeprazole 40 mg capsule,delayed 40 mg PO DAILY 01/24/21 03/24/23 release tizanidine 2 mg tablet 2 mg PO HS 12/24/21 03/24/23 cholecalciferol (vitamin D3) 125 125 mcg PO DAILY 03/14/23 03/24/23 mcg (5,000 unit) tablet (Vitamin D3) montelukast 10 mg tablet 10 mg PO HS 03/14/23 03/24/23 (Singulair) vitamin B complex (Complex B-100 1 tablet PO DAILY 03/14/23 03/24/23 tablet,extended release) <Blanca Harding APRN - Last Filed: 09/15/24 20:20> Allergies/Adverse Reactions: Allergies Allergy/AdvReac Type Severity Reaction Status Date / Time cortisone Allergy Mild Redness of Verified 03/24/23 11:23 Skin <Blanca Harding APRN - Last Filed: 09/15/24 20:20> Review of Systems Review of Systems: A 10 system review of systems was completed on the patient and is negative except for what is stated in the HPI. Nursing and ancillary documentation was reviewed. <Severino Garrett MD - Last Filed: 09/15/24 20:56> [facility] Past Medical History Medical History: Medical History Bilateral knee pain Fall <Blanca Harding APRN - Last Filed: 09/15/24 20:20> Surgical History Surgical History: Surgical History Total knee replacement status <Blanca Harding APRN - Last Filed: 09/15/24 20:20> Social History Social History: Social History Smoking status: Never smoker Alcohol intake: never Substance use: never Substance use type: does not use Living arrangements: with family Spiritual care concerns: No <Blanca Harding, [employer] - Last Filed: 09/15/24 20:20> Exam Narrative: GENERAL: Well-appearing, well-nourished, and in no acute distress. HEAD: Normocephalic, atraumatic. EYES: PERRLA and EOMI. ENT: Nares clear, no rhinorrhea or epistaxis. Mucous membranes moist. NECK: Supple. CHEST: Clear to auscultation. No respiratory distress. HEART: Regular rate and rhythm. No murmur heard. Normal peripheral pulses. ABDOMEN: Soft, nontender, nondistended, normal active bowel sounds. EXTREMITIES: Normal range of motion tenderness to palpation in the right. No edema. SKIN: Warm, dry, no rash. NEURO: No focal deficits. Alert and oriented x3. PSYCH: Normal mood and affect. <Severino Garrett MD - Last Filed: 09/15/24 20:56> Course Vital Signs Vital signs: Vital Signs Temperature 36.5 C 09/15/24 15:09 Pulse Rate 76 09/15/24 15:09 Respiratory Rate 18 09/15/24 15:09 Blood Pressure 147/74 H 09/15/24 15:09 Pulse Oximetry 100 09/15/24 15:09 Temperature 36.5 C 09/15/24 15:09 Pulse Rate 67 09/15/24 19:28 Respiratory Rate 15 09/15/24 19:28 Blood Pressure 144/70 H 09/15/24 19:28 Pulse Oximetry 99 09/15/24 19:28 <Blanca Harding, [employer] - Last Filed: 09/15/24 20:20> Vital Signs Temperature 36.5 C 09/15/24 15:09 Pulse Rate 76 09/15/24 15:09 Respiratory Rate 18 09/15/24 15:09 Blood Pressure 147/74 H 09/15/24 15:09 Pulse Oximetry 100 09/15/24 15:09 Temperature 36.5 C 09/15/24 15:09 Pulse Rate 67 09/15/24 19:28 Respiratory Rate 15 09/15/24 19:28 Blood Pressure 144/70 H 09/15/24 19:28 Pulse Oximetry 99 09/15/24 19:28 <Severino Garrett MD - Last Filed: 09/15/24 20:56> MDM - Fall MDM Narrative Medical decision making narrative: Differential diagnosis includes fracture, contusion, vasovagal syncope, electrolyte abnormality EKG showed no acute ischemic changes no dysrhythmia noted CT head showed no acute findings Plain film x-rays the right knee showed no evidence of fracture CBC and CMP showed no acute abnormality troponin was negative magnesium was 2.2 <Severino Garrett MD - Last Filed: 09/15/24 20:56> Lab Data Result diagrams: 09/15/24 18:21 09/15/24 18:21 <Blanca Harding APRN - Last Filed: 09/15/24 20:20> Labs: Lab Results 09/15/24 Range/Units 18:21 WBC 6.1 (4.5-10.0) K/mm3 RBC 4.44 (4.2-5.4) M/mm3 Hgb 13.3 (12.0-15.0) g/dL Hct 40.3 (37.0-47.0) % MCV 90.8 (80-100) fl MCH 30.0 (26-34) pg MCHC 33.0 (32-36) g/dl RDW 14.4 (11.5-14.5) % Plt Count 187 (150-375) k/mm3 MPV 10.3 (7.4-10.4) fl Immature Gran % (Auto) 0.2 (0-0.5) % Neut % (Auto) 57.1 (45.5-73.1) % Lymph % (Auto) 33.3 (18.3-44.2) % [place] % (Auto) 8.2 (2.6-8.5) % Eos % (Auto) 0.7 (0-4.4) % Baso % (Auto) 0.5 (0.2-1.2) % Lymph # (Auto) 2.03 (0.9-3.2) K/mm3 [place] # (Auto) 0.5 (0.1-0.6) K/mm3 Eos # (Auto) 0.0 (0-0.3) K/mm3 Baso # (Auto) 0.0 (0.0-0.1) K/mm3 Abs Immat Gran (auto) 0.01 (0.00-0.031) K/mm3 Absolute Neuts (auto) 3.5 (1.3-6.7) K/mm3 Absolute Nucleated RBC 0.000 (0.0-0.012) K/mm3 Nucleated RBC % 0.0 (0.0-0.2) % PT 12.7 (11.1-14.7) Seconds INR 0.9 APTT 23.9 (22.3-36.8) Seconds Sodium 139 (137-145) mmol/L Potassium 3.4 (3.4-5.0) mmol/L Chloride 103 (98-107) mmol/L Carbon Dioxide 26 (22-30) mmol/L Anion Gap 10 (4-12) mmol/L BUN 21 H (7-17) mg/dL Creatinine 0.90 (0.7-1.0) mg/dL Estim Creat Clear Calc 71 ml/min Estimated GFR > 60 (59 - ) Glucose 104 (65-110) mg/dL Calcium 9.6 (8.4-10.2) mg/dL Magnesium 2.2 (1.6-2.3) mg/dL Total Bilirubin 0.8 (0.2-1.3) mg/dL AST 34 (14-36) U/L ALT 31 (6-35) U/L Alkaline Phosphatase 86 (38-126) U/L Troponin I < 0.012 (0.000-0.034) ng/mL Total Protein 8.0 (6.3-8.2) g/dL Albumin 4.4 (3.5-5.1) g/dL <Blanca Harding, [employer] - Last Filed: 09/15/24 20:20> Lab Results 09/15/24 Range/Units 18:21 WBC 6.1 (4.5-10.0) K/mm3 RBC 4.44 (4.2-5.4) M/mm3 Hgb 13.3 (12.0-15.0) g/dL Hct 40.3 (37.0-47.0) % MCV 90.8 (80-100) fl MCH 30.0 (26-34) pg MCHC 33.0 (32-36) g/dl RDW 14.4 (11.5-14.5) % Plt Count 187 (150-375) k/mm3 MPV 10.3 (7.4-10.4) fl Immature Gran % (Auto) 0.2 (0-0.5) % Neut % (Auto) 57.1 (45.5-73.1) % Lymph % (Auto) 33.3 (18.3-44.2) % [place] % (Auto) 8.2 (2.6-8.5) % Eos % (Auto) 0.7 (0-4.4) % Baso % (Auto) 0.5 (0.2-1.2) % Lymph # (Auto) 2.03 (0.9-3.2) K/mm3 [place] # (Auto) 0.5 (0.1-0.6) K/mm3 Eos # (Auto) 0.0 (0-0.3) K/mm3 Baso # (Auto) 0.0 (0.0-0.1) K/mm3 Abs Immat Gran (auto) 0.01 (0.00-0.031) K/mm3 Absolute Neuts (auto) 3.5 (1.3-6.7) K/mm3 Absolute Nucleated RBC 0.000 (0.0-0.012) K/mm3 Nucleated RBC % 0.0 (0.0-0.2) % PT 12.7 (11.1-14.7) Seconds INR 0.9 APTT 23.9 (22.3-36.8) Seconds Sodium 139 (137-145) mmol/L Potassium 3.4 (3.4-5.0) mmol/L Chloride 103 (98-107) mmol/L Carbon Dioxide 26 (22-30) mmol/L Anion Gap 10 (4-12) mmol/L BUN 21 H (7-17) mg/dL Creatinine 0.90 (0.7-1.0) mg/dL Estim Creat Clear Calc 71 ml/min Estimated GFR > 60 (59 - ) Glucose 104 (65-110) mg/dL Calcium 9.6 (8.4-10.2) mg/dL Magnesium 2.2 (1.6-2.3) mg/dL Total Bilirubin 0.8 (0.2-1.3) mg/dL AST 34 (14-36) U/L ALT 31 (6-35) U/L Alkaline Phosphatase 86 (38-126) U/L Troponin I < 0.012 (0.000-0.034) ng/mL Total Protein 8.0 (6.3-8.2) g/dL Albumin 4.4 (3.5-5.1) g/dL <Severino Garrett MD - Last Filed: 09/15/24 20:56> Discharge Plan Discharge Clinical Impression: Syncope, Contusion of right knee <Blanca Harding APRN - Last Filed: 09/15/24 20:20> Patient Disposition: Home, Self-Care <Blanca Harding APRN - Last Filed: 09/15/24 20:20> Condition: Stable <Blanca Harding APRN - Last Filed: 09/15/24 20:20> Instructions: Antibiotic Form, Syncope (ED), Concussion (ED) <Blanca Harding APRN - Last Filed: 09/15/24 20:20> Prescriptions: No Action alprazolam 1 mg tablet 1 mg PO PRN PRN (Reason: Anxiety) meloxicam 15 mg tablet 15 mg PO PRN PRN (Reason: Pain, Moderate) Hold Instructions: Resume on 03/26/23. omeprazole 40 mg capsule,delayed release(DR/EC) 40 mg PO DAILY albuterol sulfate 90 mcg/actuation HFA aerosol inhaler 2 puff INHALATION QID PRN (Reason: shortness of breath or wheezing) Qty: 8 0RF tizanidine 2 mg tablet 2 mg PO HS fluoxetine [Prozac] 10 mg capsule 10 mg PO DAILY Complex B-100 Tablet Extended Release 1 tablet PO DAILY montelukast [Singulair] 10 mg Tablet 10 mg PO HS cholecalciferol (vitamin D3) [Vitamin D3] 125 mcg (5,000 unit) Tablet 125 mcg PO DAILY hydrocodone-acetaminophen 5-325 mg tablet 1 tablet PO Q6H PRN (Reason: pain) Qty: 20 0RF <Blanca Harding APRN - Last Filed: 09/15/24 20:20> Follow-up/Referrals: Bernardino,CATHY Hernandez [Primary Care Provider] - <Blanca Harding APRN - Last Filed: 09/15/24 20:20> Time of Disposition: 20:52 <Blanca Harding APRN - Last Filed: 09/15/24 20:20> 20:52 <Severino Garrett MD - Last Filed: 09/15/24 20:56>
--- NOTE | 2024-09-15 17:30 | PC.NURSE ---
PT REFUSED ELBOW XRAY, DENIED THE NEED FOR THAT
[2024-09-15 18:27] LABS: Basophils Percent Auto 0.5 % (0.2-1.2); Eosinophils Percent Auto 0.7 % (0-4.4); Hematocrit 40.3 % (37.0-47.0); Hemoglobin 13.3 g/dL (12.0-15.0); Immature Granulocyte Absolute 0.01 K/mm3 (0.00-0.031); Immature Granulocyte Percent A 0.2 % (0-0.5); Lymphocytes Absolute Auto 2.03 K/mm3 (0.9-3.2); Lymphocytes Percent Auto 33.3 % (18.3-44.2); Mean Corpuscular Volume 90.8 fl (80-100); Mean Platelet Volume 10.3 fl (7.4-10.4); Monocytes Absolute Auto 0.5 K/mm3 (0.1-0.6); Monocytes Percent Auto 8.2 % (2.6-8.5); Neutrophils Absolute Auto 3.5 K/mm3 (1.3-6.7); Neutrophils Percent Auto 57.1 % (45.5-73.1); Platelet Count Result 187 k/mm3 (150-375); Red Blood Count 4.44 M/mm3 (4.2-5.4); Red Cell Distribution Width 14.4 % (11.5-14.5); White Blood Count 6.1 K/mm3 (4.5-10.0)
[2024-09-15 18:36] LABS: Alanine Aminotransferase 31 U/L (6-35); Albumin Level 4.4 g/dL (3.5-5.1); Alkaline Phosphatase 86 U/L (38-126); Anion Gap 10 mmol/L (4-12); Aspartate Amino Transferase 34 U/L (14-36); Bilirubin,Total 0.8 mg/dL (0.2-1.3); Blood Urea Nitrogen 21 mg/dL (7-17); Calcium 9.6 mg/dL (8.4-10.2); Carbon Dioxide 26 mmol/L (22-30); Chloride 103 mmol/L (98-107); Estimated CRCL calculation 71 ml/min; Estimated Glomerular Filt Rate > 60; Glucose 104 mg/dL (65-110); Magnesium 2.2 mg/dL (1.6-2.3); Potassium 3.4 mmol/L (3.4-5.0); Sodium 139 mmol/L (137-145)
[2024-09-15 18:38] LABS: INR 0.9; Prothrombin Time 12.7 Seconds (11.1-14.7)
[2024-09-15 18:39] LABS: Partial Thromboplastin Time 23.9 Seconds (22.3-36.8)
[2024-09-15 18:48] LABS: Troponin I < 0.012 ng/mL (0.000-0.034)
[2024-09-15 19:28] VITALS: BP 144/70; PULSE 67; RESP 15; O2SAT 99
[2024-09-15] MEDS: HYDROcodone/acetaminophen (*CRX) 5-325 MG TABLET 1 TAB PO (19:30)
[2024-09-15] MEDS: TETANUS,DIPHTHERIA,AC PERTUSSIS ADULT (0.5 ML) BOOSTRIX IM (21:08)
[2024-09-15 21:20] VITALS: BP 126/68; PULSE 70; RESP 15; O2SAT 100
== END 2024-09-15 21:21 | disposition home or self-care (01) ==
PROVIDERS: Registered Nurse; Emergency Provider Emergency Medicine; PCP Physician Assistant
DX: R55 Syncope and collapse (principal); S80.01XA Contusion of right knee, initial encounter; W19.XXXA Unspecified fall, initial encounter; Z23 Encounter for immunization
CPT/HCPCS: 36415; 70450; 73564; 80053; 83735; 84484; 85025; 85610; 85730; 90715; 93005; 96372; 99284; A9270

== ENCOUNTER 2024-09-28 08:24 | Emergency (ER) | payer OTHER, SELFPAY ==
--- NOTE | ~2024-09-28 | XR_ITS ---
EXAMINATION: XR knee RT 3V DATE: 09/28/2024 09:28 INDICATION: Right knee injury. TECHNIQUE: 3 views of right knee were obtained. COMPARISON: Right knee radiographs 09/15/2024, 03/23/2020 FINDINGS: There is a total right knee arthroplasty without patellar resurfacing in near-anatomic alig nment. No fracture. There is a chronic sclerotic lesion in distal femoral diaphysis, likely bone ceme nt or a benign bone island. No periprosthetic lucency to suggest loosening or infection. There are os teophytes of the patella. There is a small knee joint effusion. IMPRESSION: 1. Total right knee arthroplasty in near-anatomic alignment. 2. Mild osteoarthritis of patellofemoral compartment. 3. Small knee joint effusion. Reviewed, dictated and finalized at location [facility]
--- NOTE | ~2024-09-28 | XR_ITS ---
XR chest 1V Ordering provider: Pepe Moe MD History: 58 years Female with . rib pain X 2 WEEKS AGO AFTER FALL . Comparison: None. FINDINGS: MEDIASTINUM: The cardiac silhouette is not enlarged. LUNGS: No infiltrates, effusions or pneumothorax. OTHER: No free air under the diaphragm. IMPRESSION: No acute cardiopulmonary pathology. Reviewed, dictated and finalized at location [facility]
[2024-09-28 08:28] VITALS: BP 149/74; PULSE 71; RESP 20; TEMP 36.4; O2SAT 100
--- NOTE | 2024-09-28 08:53 | ED_ITS ---
HPI - General Adult General Chief complaint: Fall Stated complaint: fell 2wks ago, hurt R knee,elbow,ribs Time Seen by Provider: 09/28/24 08:30 History of Present Illness HPI narrative: 58-year-old female presents the emergency department for evaluation for right rib pain and right knee pain. Patient had a fall approximately 2 weeks ago and was evaluated at that time. Patient states she did have imaging of her head chest and legs but states she is having worsening rib pain and persistent right knee pain. Patient denies any new falls or injuries. Related Data Home Medications Medication Instructions Recorded Confirmed fluoxetine 10 mg capsule (Prozac) 10 mg PO DAILY 03/23/20 03/24/23 alprazolam 1 mg tablet 1 mg PO PRN PRN Anxiety 01/24/21 03/24/23 meloxicam 15 mg tablet 15 mg PO PRN PRN Pain, Moderate 01/24/21 03/24/23 omeprazole 40 mg capsule,delayed 40 mg PO DAILY 01/24/21 03/24/23 release tizanidine 2 mg tablet 2 mg PO HS 12/24/21 03/24/23 cholecalciferol (vitamin D3) 125 125 mcg PO DAILY 03/14/23 03/24/23 mcg (5,000 unit) tablet (Vitamin D3) montelukast 10 mg tablet 10 mg PO HS 03/14/23 03/24/23 (Singulair) vitamin B complex (Complex B-100 1 tablet PO DAILY 03/14/23 03/24/23 tablet,extended release) Allergies Allergy/AdvReac Type Severity Reaction Status Date / Time cortisone Allergy Mild Redness of Verified 09/28/24 08:47 Skin Review of Systems Review of Systems: All systems reviewed & are unremarkable except as noted in HPI and below PMFSH Past Medical History Medical History Bilateral knee pain Fall Surgical History Surgical History Total knee replacement status Social History Social History Smoking status: Never smoker Alcohol intake: never Substance use: never Substance use type: does not use Living arrangements: with family Spiritual care concerns: No Exam Narrative: APPEARANCE: Well appearing, no pain, no distress, well-nourished. HEAD: normocephalic, atraumatic. EYES: PERRLA/EOMI, conjunctivae clear. NOSE: Normal no drainage EARS:TMS clear with good light reflex. THROAT: Pharynx clear, no exudate. NECK: Supple. No adenopathy, no masses. RESPIRATORY: Airway patent, respirations nonlabored. Clear to auscultation bilaterally, no rales, rhonchi, wheezing. CARDIOVASCULAR: Regular rate and rhythm without murmurs rubs or gallops. ABDOMINAL: Soft, nontender, nondistended, normal bowel sounds MUSCULOSKELETAL: Right-sided rib tenderness and right knee tenderness NEURO: Alert. Cranial nerves II through XII intact. Good gait. Good coordination SKIN: Warm, dry. Normal Color Course Vital Signs Vital signs: Vital Signs Temperature 97.6 F 09/28/24 08:28 Pulse Rate 71 09/28/24 08:28 Respiratory Rate 20 09/28/24 08:28 Blood Pressure 149/74 H 09/28/24 08:28 Pulse Oximetry 100 09/28/24 08:28 Temperature 97.6 F 09/28/24 08:28 Pulse Rate 60 09/28/24 10:09 Respiratory Rate 18 09/28/24 10:09 Blood Pressure 141/74 H 09/28/24 10:09 Pulse Oximetry 100 09/28/24 10:09 Medical Decision Making [facility] Narrative Medical decision making narrative: 58-year-old female presenting to the emergency department for re-evaluation after having a ground level fall 2 weeks ago. Patient states she is still having persist right rib and right knee pain. No acute fractures or abnormalities were noted on the imaging. Suspect patient does have a subtle rib fracture that is still healing. Patient may have internal derangement of the right knee. Patient was updated results of the workup patient was comfortable the plan for discharge and close follow-up. Differential Diagnosis Differential Diagnosis: Pneumonia, pneumothorax, pulmonary contusion, rib fracture knee fracture, knee contusion, internal derangement Vital Signs Vital Signs: Vital Signs Temperature 97.6 F 09/28/24 08:28 Pulse Rate 71 09/28/24 08:28 Respiratory Rate 20 09/28/24 08:28 Blood Pressure 149/74 H 09/28/24 08:28 Pulse Oximetry 100 09/28/24 08:28 Temperature 97.6 F 09/28/24 08:28 Pulse Rate 60 09/28/24 10:09 Respiratory Rate 18 09/28/24 10:09 Blood Pressure 141/74 H 09/28/24 10:09 Pulse Oximetry 100 09/28/24 10:09 Imaging Data Radiologist's impression: Impressions Knee X-Ray 09/28/24 09:31 IMPRESSION: 1. Total right knee arthroplasty in near-anatomic alignment. 2. Mild osteoarthritis of patellofemoral compartment. 3. Small knee joint effusion. Chest X-Ray 09/28/24 09:38 IMPRESSION: No acute cardiopulmonary pathology. Discharge Plan Discharge Clinical Impression: Chest wall pain, Knee pain Patient Disposition: Home, Self-Care Condition: Stable Instructions: Antibiotic Form, Knee Pain (ED), Rib Contusion (ED) Additional Instructions: Alexis wrap for the knee for increased support. Continue Tylenol and ibuprofen for pain control. Have close follow-up with your primary care physician. If you have any worsening symptoms then please call or return to the emergency department. Prescriptions: No Action alprazolam 1 mg tablet 1 mg PO PRN PRN (Reason: Anxiety) meloxicam 15 mg tablet 15 mg PO PRN PRN (Reason: Pain, Moderate) Hold Instructions: Resume on 03/26/23. omeprazole 40 mg capsule,delayed release(DR/EC) 40 mg PO DAILY albuterol sulfate 90 mcg/actuation HFA aerosol inhaler 2 puff INHALATION QID PRN (Reason: shortness of breath or wheezing) Qty: 8 0RF tizanidine 2 mg tablet 2 mg PO HS fluoxetine [Prozac] 10 mg capsule 10 mg PO DAILY Complex B-100 Tablet Extended Release 1 tablet PO DAILY montelukast [Singulair] 10 mg Tablet 10 mg PO HS cholecalciferol (vitamin D3) [Vitamin D3] 125 mcg (5,000 unit) Tablet 125 mcg PO DAILY hydrocodone-acetaminophen 5-325 mg tablet 1 tablet PO Q6H PRN (Reason: pain) Qty: 20 0RF Follow-up/Referrals: Bernardino,CATHY Hernandez [Primary Care Provider] -
[2024-09-28 10:09] VITALS: BP 141/74; PULSE 60; RESP 18; O2SAT 100
== END 2024-09-28 10:15 | disposition home or self-care (01) ==
PROVIDERS: Emergency Provider Emergency Medicine; PCP Physician Assistant
DX: R07.89 Other chest pain (principal); M25.561 Pain in right knee; W19.XXXA Unspecified fall, initial encounter
CPT/HCPCS: 71045; 73562; 99284